=== PATIENT | female | born 1990 | race Caucasian/White ===

== ENCOUNTER 2017-11-30 18:07 | Emergency (ER) | payer MEDICAID, OTHER ==
[~2017-11-30] VITALS: Ht 165.1 cm; Wt 54.4 kg
[~2017-11-30 18:07] MED LIST: TRAMADOL
[2017-11-30 18:17] VITALS: BP_SYST 123
[2017-11-30 18:54] LABS: BILIRUBIN,URINE NEGATIVE (NEGATIVE); BLOOD, URINE 1+ (NEGATIVE); CLARITY/URINE SL HAZY (CLEAR); COLOR,URINE YELLOW (YELLOW); GLUCOSE,URINE NEGATIVE (NEGATIVE); KETONES,URINE NEGATIVE (NEGATIVE); LEUKOCYTE ESTERASE ,URINE NEGATIVE (NEGATIVE); NITRITE, URINE NEGATIVE (NEGATIVE); PH,URINE 6.5 (5.0-8.0); PROTEIN URINE NEGATIVE (NEGATIVE); UROBILINOGEN,URINE 0.2 (0.2-1.0)
[2017-11-30 19:14] LABS: BACTERIA,URINE MODERATE /HPF (None Seen)
[2017-11-30 19:15] LABS: MUCUS,URINE 2+ /LPF (None Seen)
[2017-11-30] MEDS ORDERED: MAG HYDROX/AL HYDROX/SIMETH 30 ML, BELLADONNA ALKALOIDS/PHENOBARB 10 ML, LIDOCAINE VISC... PO ONE ×3 (20:00)
[2017-11-30 20:30] VITALS: BP_SYST 127
== END 2017-11-30 20:30 | disposition home or self-care (01) ==
LOC: SED 18:07
DX: K21.9 Gastro-esophageal reflux disease without esophagitis (principal); J45.909 Unspecified asthma, uncomplicated
CPT/HCPCS: 81000; 81025; 87086; 99284; J2001